=== PATIENT | male | born 1965 | race Asian ===

== ENCOUNTER 2025-06-05 05:39 | Day surgery (SDC) | payer BC ==
[2025-06-01 08:42] VITALS: BMI 32.8
[2025-06-05] MEDS ORDERED: AFRIN NASAL MIST 15 ML BOT ONE ×2 (06:20→06:26)
[2025-06-05] MEDS ORDERED: Lidocaine 1% w/Epinephrine 1:200K 30 ML VIAL ONE (06:26)
[2025-06-05] MEDS ORDERED: SUGAMMADEX SODIUM 200 MG/2 ML VIAL ONE (06:30)
[2025-06-05] MEDS ORDERED: PROPOFOL 20 ML ONE (06:30)
[2025-06-05] MEDS ORDERED: Ondansetron PF 4 MG/2 ML Vial ONE (06:30)
[2025-06-05] MEDS ORDERED: Rocuronium Bromide 10 MG/ML (10ML VIAL) ONE (06:30)
[2025-06-05] MEDS ORDERED: Lidocaine 1% PF 5 ML VIAL ONE (06:31)
[2025-06-05] MEDS ORDERED: Glycopyrrolate 0.2 MG/ML 5 ML SYRINGE ONE (07:07)
[2025-06-05] MEDS ORDERED: CEFAZOLIN 1 GM VIAL ONE (07:13)
[2025-06-05] MEDS ORDERED: PHENYLEPHRINE-NS 100 MCG/ML 10 ML SYRINGE ONE (07:18)
[2025-06-05] MEDS ORDERED: Oxymetazoline HCl 0.05% (15 ML) ONE (07:29)
== END 2025-06-05 10:20 | disposition home or self-care (01) ==
LOC: CSHSDC 05:39
PROVIDERS: ATTEND Otolaryngology Otolaryngic Allergy
PROC: 09SM0ZZ Reposition Nasal Septum, Open Approach (ICD-10-PCS; principal; 2025-06-05)
PROC: 09TL0ZZ Resection of Nasal Turbinate, Open Approach (ICD-10-PCS; principal; 2025-06-05)
DX: J34.2 Deviated nasal septum (principal); J34.3 Hypertrophy of nasal turbinates; J30.9 Allergic rhinitis, unspecified; I10 Essential (primary) hypertension; Z79.899 Other long term (current) drug therapy
CPT/HCPCS: 93005; 93010; J0690; J1100; J2250; J2405; J2704; J3010; J3301